=== PATIENT | female | born 1990 ===

== ENCOUNTER 2024-08-07 17:00 | Emergency (ER) | payer OTHER, SELFPAY ==
[2024-08-07 17:11] VITALS: BP 119/71; BP 138/98; PULSE 101; PULSE 110; RESP 18; TEMP 36.9; O2SAT 97; O2SAT 98; BMI 36.9
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
[2024-08-07] MEDS: Ibuprofen 600 MG TABLET PO (17:50)
[2024-08-07 18:00] VITALS: BP 119/71; PULSE 101; RESP 18; TEMP 36.9; O2SAT 97
== END 2024-08-07 18:01 | disposition home or self-care (01) ==
PROVIDERS: Emergency Provider Internal Medicine
DX: S29.012A Strain of muscle and tendon of back wall of thorax, initial encounter (principal); V43.52XA Car driver injured in collision with other type car in traffic accident, initial encounter; Y93.89 Activity, other specified; Y92.414 Local residential or business street as the place of occurrence of the external cause; Y99.9 Unspecified external cause status
CPT/HCPCS: 99283; 99284